=== PATIENT | male | born 1975 | race Hispanic/Latino ===

== ENCOUNTER → 2019-02-11 | Outpatient (CLI) | payer MEDICAID | END | disposition home or self-care (01) | LOC: LAB 11:59 | PROVIDERS: ATTEND Internal Medicine | DX: G47.33 Obstructive sleep apnea (adult) (pediatric) (principal); R07.9 Chest pain, unspecified | CPT/HCPCS: 36415; 71046; 84443 ==

== ENCOUNTER → 2023-07-22 | Outpatient (CLI) | payer OTHER | END | disposition home or self-care (01) | LOC: RAH 09:51 | PROVIDERS: ATTEND Internal Medicine | DX: M17.12 Unilateral primary osteoarthritis, left knee (principal); M48.07 Spinal stenosis, lumbosacral region; M25.70 Osteophyte, unspecified joint | CPT/HCPCS: 72100; 73120; 73560 ==

== ENCOUNTER 2025-03-22 06:33 | Day surgery (SDC) | payer MEDICAID ==
[2025-03-22] VITALS (10 sets, daily range): BP systolic 112–139; BP diastolic 61–91; PULSE 52–67; RESP 16–18; TEMP 97–97.8
[~2025-03-22] VITALS: Ht 185.4 cm; Wt 97.5 kg
[2025-03-22] MEDS ORDERED: DESV50TA PO (07:52)
[2025-03-22] MEDS ORDERED: ESZO3TAB65 PO (07:52)
[2025-03-22] MEDS ORDERED: FLUO20CA32 PO (07:52)
[2025-03-22] MEDS ORDERED: SODIUM TETRADECYL SULFATE 30 MG/ML 2 ML VIAL IV ONE ×2 (08:00→08:30)
[2025-03-22] MEDS: 0.9%NACL 1000ML 1,000 ML IV ONE (08:07)
[2025-03-22] MEDS ORDERED: LIDOCAINE PF 100MG/5ML (2%) SYRINGE 5ML ONE (08:46)
--- NOTE | 2025-03-22 12:07 | OP ---
Operative Note: DATE OF PROCEDURE: 03/22/25 SURGEON: CORBIN DREW MD AD OPERATIONS SPECIALIST: [] ANESTHESIA: [] MAC ANESTHESIOLOGIST/BAGGAGE PORTER HEAD: [] PREOPERATIVE DIAGNOSIS: [] GERD Status post gastric bypass POSTOPERATIVE DIAGNOSIS: [] The same SYNOPSIS: [] PROCEDURE: [] Upper endoscopy with sclerotherapy ESTIMATED BLOOD LOSS: [] None INDICATIONS: [] DESCRIPTION OF PROCEDURE: []With the patient in conscious sedation I inserted the endoscope through the mouth. We advanced this to the esophagus was completely normal. Z-line was at 40 cm. We entered the stomach and found a 5 cml gastric pouch. There was no pathology in the gastrojejunostomy was about 1- 1.5 cm diaameter. The jejunum was completely normal. I then injected 10 cc of sclerotherapy irrigation around the gastrojejunostomy. No complication. Before retrieving the scope I suctioned all the fluid and air. Procedure was completed without any complication. CORBIN DREW MD Mar 22, 2025 12:07
== END 2025-03-22 10:15 | disposition home or self-care (01) ==
LOC: ENDO 06:33 → DAH 06:33 → ENDO 10:15
PROVIDERS: ATTEND Surgery
DX: K21.9 Gastro-esophageal reflux disease without esophagitis (principal); G47.33 Obstructive sleep apnea (adult) (pediatric); F41.9 Anxiety disorder, unspecified; Z98.84 Bariatric surgery status; E66.09 Other obesity due to excess calories; Z68.30 Body mass index [BMI] 30.0-30.9, adult; Z79.899 Other long term (current) drug therapy
CPT/HCPCS: 43236; J7030; J2003; J2704; J3490 ×2; A4620; A4215 ×2; A4223; A4222; A4221; A4663; A4606